=== PATIENT | male | born 2000 | race Caucasian/White ===

== ENCOUNTER 2021-05-24 18:58 | Emergency (ER) | payer OTHER ==
[2021-05-24 19:06] VITALS: BP 132/89; PULSE 91; RESP 18; TEMP 98.3
[2021-05-24] MEDS ORDERED: FLUORESCEIN STRIPS 1 MG STRIP LEFT EYE ONE (19:13)
[2021-05-24] MEDS ORDERED: PROPARACAINE 0.5% OPHTH DROPS 15 ML BTL LEFT EYE STA (19:13)
[2021-05-24] MEDS ORDERED: TOBRAMYCIN 0.3% OPHTH DROPS 5 ML BTL LEFT EYE STA (19:25)
--- NOTE | 2021-05-24 19:26 | ED ---
Eye Problem HPI - General Chief complaint: Eye Problems Stated complaint: foreign body Time Seen by Provider: 05/24/21 19:10 Source: patient Mode of arrival: ambulatory Limitations: no limitations - History of Present Illness Initial comments: 20 year-old male patient presents to the emergency department for evaluation of left eye pain and discomfort. He is concerned he has a piece of wood in the eye. States he was cutting wood around 10:00am, thats when the pain started. States he has flushed his eye with water multiple times. States he feels like he can feel something moving in it. Denies any bloody or clear drainage. Reports some blurred vision with this. States his last tetanus was given three weeks ago. Denies any other symptoms or concerns. - Related Data Allergies Allergy/AdvReac Type Severity Reaction Status Date / Time No Known Allergies Allergy Verified 05/24/21 19:03 Review of Systems ROS Statement: Those systems with pertinent positive or pertinent negative responses have been documented in the HPI. ROS Other: All systems not noted in ROS Statement are negative. Past Medical History Past Medical History: No Reported History History of Any Multi-Drug Resistant Organisms: None Reported Past Surgical History: Orthopedic Surgery Past Psychological History: No Psychological Hx Reported Smoking Status: Current every day smoker Past Alcohol Use History: None Reported Past Drug Use History: None Reported General Exam Limitations: no limitations General appearance: alert, in no apparent distress, other (This is a well- developed, well-nourished adult male patient in no acute distress. Vital signs upon presentation are temperature 98.3F, pulse 91, respirations 18, blood pressure 132/89, pulse ox 100% on room air.) Eye exam: Present: PERRL, EOMI, conjunctival injection (Left), other (Fluorescein stain with Wood's lamp examination was performed to the left eye, there is uptake over the cornea extending from 10:00 to 12:00, indicating moderate sized corneal abrasion. Negative Fidel sign. Limbus is clear. Lid eversion was performed, no evidence for foreign body). Absent: scleral icterus, periorbital swelling Respiratory exam: Present: normal lung sounds bilaterally. Absent: respiratory distress, wheezes, rales, rhonchi, stridor Cardiovascular Exam: Present: regular rate, normal rhythm, normal heart sounds. Absent: systolic murmur, diastolic murmur, rubs, gallop, clicks Neurological exam: Present: alert, oriented X3, CN II-XII intact Psychiatric exam: Present: normal affect, normal mood Skin exam: Present: warm, dry, intact, normal color. Absent: rash Course Vital Signs 05/24/21 19:03 Temperature 98.3 F Pulse Rate 91 Respiratory 18 Rate Blood Pressure 132/89 O2 Sat by Pulse 100 Oximetry Medical Decision Making - Medical Decision Making 20-year-old male patient presented to the emergency department today for evaluation of left eye pain since around 10:00 this morning after chopping wood. Physical examination did reveal corneal abrasion to the left eye extending from 10:00 to 12:00. This is consistent with moderate size corneal abrasion. I did perform thorough exam including lid eversion which showed no evidence for foreign body. Tetanus is updated 3 weeks ago. He is given tobramycin drops to instill 4 times daily. He'll be discharged to follow-up with ophthalmology if his symptoms are not improved over the next 2 days. Return parameters are discussed in detail. He verbalizes understanding and agrees with this plan. My attending is Dr. Franco. Disposition Clinical Impression: Left corneal abrasion Disposition: HOME SELF-CARE Condition: Good Instructions (If sedation given, give patient instructions): Corneal Abrasion (ED) Additional Instructions: Do 1 drop to the left eye 4 times daily while awake. Take Tylenol Motrin for discomfort. Follow up with physical chemistry professor if her symptoms are not improved after 2 days. Return to the emergency department immediately for any new, worsening, or concerning symptoms. Is patient prescribed a controlled substance at d/c from ED?: No Referrals: Felipe Vieira MD [STAFF PHYSICIAN] - 1-2 days Time of Disposition: 19:26
== END 2021-05-24 19:36 | disposition home or self-care (01) ==
LOC: EC 18:58
DX: S05.02XA Injury of conjunctiva and corneal abrasion without foreign body, left eye, initial encounter (principal); F17.200 Nicotine dependence, unspecified, uncomplicated
CPT/HCPCS: 99283